=== PATIENT | male | born 1940 | race African-American/Black ===

== ENCOUNTER → 2018-02-22 | Outpatient (CLI) | payer MEDICARE, MEDICAID ==
[~2018-02-22] MED LIST: AMIO100T4 PO; AMLO5TAB88 PO; ATOR20TA65 PO; CLOP75TA16 PO; DOXA4TAB3 PO; TAMS0.4C31 PO; ZOLP5TAB2 PO
== END | disposition home or self-care (01) ==
LOC: RAD 11:05
PROVIDERS: ATTEND Internal Medicine Nephrology
DX: I13.0 Hypertensive heart and chronic kidney disease with heart failure and stage 1 through stage 4 chronic kidney disease, or unspecified chronic kidney disease (principal); I50.9 Heart failure, unspecified; N18.4 Chronic kidney disease, stage 4 (severe); I70.0 Atherosclerosis of aorta; Z95.810 Presence of automatic (implantable) cardiac defibrillator
CPT/HCPCS: 71045

== ENCOUNTER 2018-09-12 09:02 | Inpatient (IN) | payer MEDICARE, MEDICAID ==
[~2018-09-12] VITALS: Ht 185.4 cm; Wt 87.1 kg
[2018-09-12] MEDS ORDERED: ACETAMINOPHEN 325MG TABLET PO ONE (11:45)
[2018-09-12] MEDS ORDERED: TRIM100T11 PO (13:00)
[2018-09-12] MEDS ORDERED: ZOLP10TA6 PO (13:00)
[2018-09-12] MEDS ORDERED: LINA290C PO (13:00)
[2018-09-12] MEDS ORDERED: AMI2 PO (13:00)
[2018-09-12] MEDS ORDERED: OMEP40CA34 PO (13:00)
[2018-09-12] MEDS ORDERED: HYDR-4001 PO (13:00)
[2018-09-12] MEDS ORDERED: METO25TA6 PO (13:00)
[2018-09-12] MEDS ORDERED: ATOR20TA65 PO (13:00)
[2018-09-12] MEDS ORDERED: AMLO10TA80 PO (13:00)
[2018-09-12 13:36] LABS: BASOPHILS % 0.6 % (0.0-2.0); HEMATOCRIT. 36.4 % (42.0-52.0); HEMOGLOBIN. 11.7 g/dL (14.0-18.0); LYMPHOCYTES % 14.6 % (20.0-50.0); MEAN CORPUSCULAR HEMOGLOBIN 28.1 pg (28.0-32.0); MEAN CORPUSCULAR VOLUME 87.3 fL (80.0-94.0); MONOCYTES % 12.4 % (2.0-8.0); NEUTROPHILS % 70.4 % (40.0-76.0); PLATELET 200 x1000/uL (130-400); RED BLOOD CELL COUNT 4.17 mill/uL (4.7-6.1); RED CELL DISTRIBUTION WIDTH 21.3 % (11.6-14.6)
[2018-09-12 13:41] LABS: CHLORIDE 100 mEq/L (98-107)
[2018-09-12] MEDS ORDERED: MORPHINE SULFATE 4 MG/ML CPJ (NOT FOR IM USE) IV ONE (15:30)
[2018-09-12 16:00] VITALS: BP 186/83
[2018-09-12] MEDS ORDERED: MORPHINE SULFATE 4 MG/ML CPJ (NOT FOR IM USE) IV PRN (17:30)
[2018-09-12 17:33] VITALS: BP 205/94
[2018-09-12 20:00] VITALS: BP 167/71
[2018-09-12] MEDS ORDERED: ZOLPIDEM TARTRATE 5MG TABLET PO PRN (20:15)
[2018-09-12] MEDS ORDERED: NON FORMULARY PATIENT HOME MED EA XX SCH (20:15)
[2018-09-12] MEDS: CLOPIDOGREL 75MG TABLET PO SCH (20:46)
[2018-09-12] MEDS: METOPROLOL TARTRATE 25MG TABLET PO SCH (20:46)
[2018-09-12] MEDS: ATORVASTATIN CALCIUM 20MG TABLET PO SCH (20:46)
[2018-09-12] MEDS: HYDROCODONE/ACETAMINOPHEN 5/325MG TABLET PO PRN (20:47)
[2018-09-12] MEDS: CINACALCET HCL 30MG TABLET PO SCH (20:47)
[2018-09-12] MEDS: AMIODARONE HCL 200 MG TABLET PO SCH (20:50)
[2018-09-13] VITALS: BP 163/65
[2018-09-13 04:00] VITALS: BP 126/67
[2018-09-13] MEDS: HYDROCODONE/ACETAMINOPHEN 5/325MG TABLET PO PRN ×2 (06:39→09:00)
[2018-09-13 07:41] LABS: EOSINOPHILS % 3.5 % (0.0-5.0); HEMATOCRIT. 34.9 % (42.0-52.0); HEMOGLOBIN. 11.2 g/dL (14.0-18.0); LYMPHOCYTES % 15.7 % (20.0-50.0); MEAN CORPUSCULAR HEMOGLOBIN 28.2 pg (28.0-32.0); MEAN CORPUSCULAR VOLUME 87.9 fL (80.0-94.0); MEAN PLATELET VOLUME 6.8 fl (7.4-10.4); MONOCYTES % 13.6 % (2.0-8.0); NEUTROPHILS % 66.2 % (40.0-76.0); PLATELET 189 x1000/uL (130-400); RED BLOOD CELL COUNT 3.97 mill/uL (4.7-6.1); RED CELL DISTRIBUTION WIDTH 20.7 % (11.6-14.6)
[2018-09-13 08:02] VITALS: BP 165/63
[2018-09-13] MEDS: CLOPIDOGREL 75MG TABLET PO SCH (08:58)
[2018-09-13] MEDS: CINACALCET HCL 30MG TABLET PO SCH (08:58)
[2018-09-13] MEDS: ALPRAZOLAM 0.25 MG TABLET PO PRN ×2 (08:58→17:59)
[2018-09-13] MEDS: METOPROLOL TARTRATE 25MG TABLET PO SCH ×2 (08:58→21:48)
[2018-09-13] MEDS: LOSARTAN POTASSIUM 100 MG TABLET PO SCH (08:59)
[2018-09-13] MEDS: AMIODARONE HCL 200 MG TABLET PO SCH (09:06)
[2018-09-13] MEDS ORDERED: IBUPROFEN 800MG TABLET PO PRN (09:45)
[2018-09-13] MEDS ORDERED: IBUPROFEN 800MG TABLET PO SCH (09:45)
[2018-09-13 12:00] VITALS: BP 143/63
[2018-09-13] MEDS: HYDROCODONE/ACETAMINOPHEN 10/325MG TABLET PO PRN (13:04)
[2018-09-13 16:00] VITALS: BP 139/67
[2018-09-13] MEDS: CYCLOBENZAPRINE 10MG TABLET PO SCH ×2 (17:59→21:47)
[2018-09-13 20:00] VITALS: BP 158/59
[2018-09-13] MEDS: ATORVASTATIN CALCIUM 20MG TABLET PO SCH (21:48)
[2018-09-14] VITALS: BP 150/60
[2018-09-14] MEDS: HYDROCODONE/ACETAMINOPHEN 10/325MG TABLET PO PRN ×3 (03:04→19:57)
[2018-09-14 04:00] VITALS: BP 145/62
[2018-09-14] MEDS: CYCLOBENZAPRINE 10MG TABLET PO SCH ×3 (05:39→19:57)
[2018-09-14 08:00] VITALS: BP 164/70
[2018-09-14] MEDS: AMIODARONE HCL 200 MG TABLET PO SCH (08:40)
[2018-09-14] MEDS: METOPROLOL TARTRATE 25MG TABLET PO SCH ×2 (08:40→19:57)
[2018-09-14] MEDS: CLOPIDOGREL 75MG TABLET PO SCH (08:40)
[2018-09-14] MEDS: CINACALCET HCL 30MG TABLET PO SCH (08:40)
[2018-09-14] MEDS: LOSARTAN POTASSIUM 100 MG TABLET PO SCH (08:40)
[2018-09-14 12:00] VITALS: BP 134/60
[2018-09-14 16:00] VITALS: BP 144/69
[2018-09-14] MEDS: ATORVASTATIN CALCIUM 20MG TABLET PO SCH (19:56)
[2018-09-14 20:00] VITALS: BP 144/60
[2018-09-15] VITALS (7 sets, daily range): BP systolic 102–156; BP diastolic 42–66
[2018-09-15] MEDS: CYCLOBENZAPRINE 10MG TABLET PO SCH ×3 (05:35→22:08)
[2018-09-15] MEDS: CLOPIDOGREL 75MG TABLET PO SCH (08:56)
[2018-09-15] MEDS: AMIODARONE HCL 200 MG TABLET PO SCH (08:57)
[2018-09-15] MEDS: LOSARTAN POTASSIUM 100 MG TABLET PO SCH (08:57)
[2018-09-15] MEDS: METOPROLOL TARTRATE 25MG TABLET PO SCH ×2 (08:57→22:10)
[2018-09-15] MEDS: CINACALCET HCL 30MG TABLET PO SCH (08:57)
[2018-09-15] MEDS: HYDROCODONE/ACETAMINOPHEN 5/325MG TABLET PO PRN (09:06)
[2018-09-15] MEDS ORDERED: ONDANSETRON HCL 4MG/2ML INJ IV PRN (13:15)
[2018-09-15] MEDS ORDERED: LACTULOSE 20G/30ML UDC PO PRN (13:15)
[2018-09-15] MEDS: ATORVASTATIN CALCIUM 20MG TABLET PO SCH (22:08)
[2018-09-16 04:00] VITALS: BP 127/49
[2018-09-16] MEDS: CYCLOBENZAPRINE 10MG TABLET PO SCH ×2 (05:58→13:14)
[2018-09-16 07:14] LABS: HEMATOCRIT. 39.2 % (42.0-52.0); HEMOGLOBIN. 12.5 g/dL (14.0-18.0); MEAN CORPUSCULAR HEMOGLOBIN 27.9 pg (28.0-32.0); MEAN CORPUSCULAR VOLUME 87.8 fL (80.0-94.0); MEAN PLATELET VOLUME 6.9 fl (7.4-10.4); PLATELET 282 x1000/uL (130-400); RED BLOOD CELL COUNT 4.47 mill/uL (4.7-6.1); RED CELL DISTRIBUTION WIDTH 20.6 % (11.6-14.6)
[2018-09-16 08:00] VITALS: BP 118/57
[2018-09-16] MEDS: METOPROLOL TARTRATE 25MG TABLET PO SCH ×2 (09:00→20:55)
[2018-09-16] MEDS: LOSARTAN POTASSIUM 100 MG TABLET PO SCH (09:00)
[2018-09-16] MEDS: CINACALCET HCL 30MG TABLET PO SCH (10:59)
[2018-09-16] MEDS: AMIODARONE HCL 200 MG TABLET PO SCH (10:59)
[2018-09-16] MEDS: CLOPIDOGREL 75MG TABLET PO SCH (10:59)
[2018-09-16 13:50] VITALS: BP 125/68
[2018-09-16 16:00] VITALS: BP 100/51
[2018-09-16 16:51] LABS: PLATELET ESTIMATE NORMAL
[2018-09-16] MEDS: NYSTATIN 100,000 UNITS/ML 5ML UDC SSW SCH ×2 (17:21→23:38)
[2018-09-16] MEDS ORDERED: BISACODYL 10MG SUPP PR PRN (18:30)
[2018-09-16] MEDS ORDERED: BISACODYL 10MG SUPP PR NR (18:30)
[2018-09-16] MEDS ORDERED: LACTULOSE 20G/30ML UDC PO NR (18:45)
[2018-09-16 20:00] VITALS: BP 78/54
[2018-09-16] MEDS: ATORVASTATIN CALCIUM 20MG TABLET PO SCH (20:54)
[2018-09-17] VITALS: BP 121/55
[2018-09-17 04:00] VITALS: BP 127/59
[2018-09-17] MEDS: NYSTATIN 100,000 UNITS/ML 5ML UDC SSW SCH (05:36)
[2018-09-17 07:13] LABS: HEMATOCRIT. 42.2 % (42.0-52.0); HEMOGLOBIN. 13.7 g/dL (14.0-18.0); MEAN CORPUSCULAR VOLUME 86.2 fL (80.0-94.0); MEAN PLATELET VOLUME 7.3 fl (7.4-10.4); PLATELET 318 x1000/uL (130-400); RED CELL DISTRIBUTION WIDTH 20.9 % (11.6-14.6)
[2018-09-17 08:00] VITALS: BP 127/49
[2018-09-17] MEDS: METOPROLOL TARTRATE 25MG TABLET PO SCH (08:33)
[2018-09-17] MEDS: LOSARTAN POTASSIUM 100 MG TABLET PO SCH (08:34)
[2018-09-17] MEDS: AMIODARONE HCL 200 MG TABLET PO SCH (08:34)
[2018-09-17] MEDS: CLOPIDOGREL 75MG TABLET PO SCH (08:34)
[2018-09-17] MEDS: CINACALCET HCL 30MG TABLET PO SCH (08:40)
[2018-09-17] MEDS: ALPRAZOLAM 0.25 MG TABLET PO PRN (08:43)
[2018-09-17] MEDS: HYDROCODONE/ACETAMINOPHEN 5/325MG TABLET PO PRN (11:25)
[2018-09-17 12:00] VITALS: BP 110/49
[2018-09-17] MEDS ORDERED: DOPAMINE 400MG PREMIX 250 ML IV PRN (13:00)
[2018-09-17] MEDS ORDERED: SODIUM BICARBONATE 8.4% 1 MEQ/ML 50ML SYR IV ONE (13:20)
[2018-09-17 13:30] LABS: PLATELET ESTIMATE NORMAL
[2018-09-17] MEDS ORDERED: HEPARIN 5000 UNITS/ML VIAL SUBCUT SCH (18:00)
== END 2018-09-17 17:16 | disposition expired | DRG 551 ==
LOC: ER 09:02 → 7WST 15:34 → EDBEDREQTM 15:37 → EDBEDREQ 15:37 → ENRESERV 15:53
PROVIDERS: ADMIT Internal Medicine; ATTEND Internal Medicine
PROC: 5A1D70Z Performance of Urinary Filtration, Intermittent, Less than 6 Hours Per Day (ICD-10-PCS; 2018-09-13)
PROC: 5A1D70Z Performance of Urinary Filtration, Intermittent, Less than 6 Hours Per Day (ICD-10-PCS; principal; 2018-09-15)
PROC: 5A1D70Z Performance of Urinary Filtration, Intermittent, Less than 6 Hours Per Day (ICD-10-PCS; 2018-09-16)
PROC: 5A12012 Performance of Cardiac Output, Single, Manual (ICD-10-PCS; 2018-09-17)
PROC: 0BH18EZ Insertion of Endotracheal Airway into Trachea, Via Natural or Artificial Opening Endoscopic (ICD-10-PCS; 2018-09-17)
DX: M51.16 Intervertebral disc disorders with radiculopathy, lumbar region (principal); N18.6 End stage renal disease; I13.2 Hypertensive heart and chronic kidney disease with heart failure and with stage 5 chronic kidney disease, or end stage renal disease; I47.2 Ventricular tachycardia; K56.7 Ileus, unspecified; G89.29 Other chronic pain; I50.9 Heart failure, unspecified; M51.36 Other intervertebral disc degeneration, lumbar region; N40.0 Benign prostatic hyperplasia without lower urinary tract symptoms; E11.22 Type 2 diabetes mellitus with diabetic chronic kidney disease; E87.5 Hyperkalemia; I46.9 Cardiac arrest, cause unspecified; D64.9 Anemia, unspecified; J44.9 Chronic obstructive pulmonary disease, unspecified; T39.95XA Adverse effect of unspecified nonopioid analgesic, antipyretic and antirheumatic, initial encounter; Y92.238 Other place in hospital as the place of occurrence of the external cause; Z95.0 Presence of cardiac pacemaker; Z92.3 Personal history of irradiation; Z85.819 Personal history of malignant neoplasm of unspecified site of lip, oral cavity, and pharynx; Z99.2 Dependence on renal dialysis; X50.0XXA Overexertion from strenuous movement or load, initial encounter; Z79.899 Other long term (current) drug therapy; Z79.02 Long term (current) use of antithrombotics/antiplatelets
CPT/HCPCS: 36415; 70490; 71045; 72070; 72100; 72131; 74018; 80048; 82962; 83735; 83880; 84443; 84484; 87077; 87186; 93005; 93306; 97162; 97530; 99285; J1265; J2270; J2405; J3490